=== PATIENT | male | born 1995 | race Caucasian/White ===

== ENCOUNTER 2021-05-09 03:36 | Observation (INO) | payer BC ==
[~2021-05-09 03:36] MED LIST: ZOFRAN4 MG PO
[2021-05-09 04:22] LABS: HEMOGLOBIN 15.6 gm/dl (14.0-17.5); RED BLOOD COUNT 5.75 M/UL (4.20-5.50)
[2021-05-09 04:57] LABS: BUN/CREATININE RATIO 17 (0-10)
[2021-05-09] MEDS ORDERED: HYDROCODON-ACE1 EAC4 PO (09:02)
[2021-05-09] MEDS ORDERED: DOCUZEN PO (09:02)
== END 2021-05-09 10:32 | disposition home or self-care (01) ==
LOC: ER1 03:36 → CDU 05:45
PROVIDERS: Family Medicine; ADMIT Surgery
DX: K35.33 Acute appendicitis with perforation, localized peritonitis, and gangrene, with abscess (principal); K21.9 Gastro-esophageal reflux disease without esophagitis; I11.9 Hypertensive heart disease without heart failure; E11.9 Type 2 diabetes mellitus without complications; Z20.822 Contact with and (suspected) exposure to COVID-19
CPT/HCPCS: 80053; 81001; 83690; 85025; 96365; 96375; 99285; G0378; J1100; J1170; J1885; J2001; J2250; J2270; J2405; J2543; J2704; J2710; J3010; J7030; J7120; Q9967; U0002